=== PATIENT | male | born 1955 | race Asian ===

== ENCOUNTER 2024-02-07 07:08 | Day surgery (SDC) | payer OTHER ==
[2024-02-07] VITALS (11 sets, daily range): BP systolic 104–134; BP diastolic 64–79
[~2024-02-07] VITALS: Ht 175.3 cm; Wt 83.3 kg
[~2024-02-07 07:08] MED LIST: AMOCLA875 PO; ATEN25 PO; ATOR40TA PO; CETI5 PO; FINA5 PO; FISH OIL 1,0001 EA10 PO; FLUTICASONE-SA1 EAC9 IH; MAGCIT300; TAMS.4ER PO
[2024-02-07] MEDS ORDERED: Lactated Ringer's 1,000 ML IV SCH (08:05)
[2024-02-07] MEDS ORDERED: CeFAZolin Sodium 2,000 MG in NS 100 ML IV SCH (08:05)
[2024-02-07] MEDS ORDERED: CeFAZolin Sodium 2,000 MG VIAL ONE (08:27)
[2024-02-07] MEDS ORDERED: Bupivacaine 0.5% HCl 5 MG/ML 30MLVIAL ONE (08:52)
[2024-02-07] MEDS ORDERED: propofoL 20 ML IV ONE (09:01)
[2024-02-07] MEDS ORDERED: FentaNYL Citrate 50 MCG/ML 2 ML Injection ONE (09:01)
[2024-02-07] MEDS ORDERED: SuccINYLCHOLINE Chloride 100 MG/5 ML 5MLSYR ONE (09:03)
[2024-02-07] MEDS ORDERED: Rocuronium Bromide 10 MG/ML 5ML Injection IV ONE ×2 (09:03→09:16)
[2024-02-07] MEDS ORDERED: Dexamethasone Sod Phos 10 MG/ML 1ML VIAL ONE (09:16)
[2024-02-07] MEDS ORDERED: ePHEDrine Sulfate 50 MG/ML 1ML Injection ONE (09:16)
[2024-02-07] MEDS ORDERED: Ondansetron HCl 2 MG / ML 2ML Vial ONE (09:16)
[2024-02-07] MEDS ORDERED: Sugammadex Sodium 200 MG/2ML SDV (100 MG/ML) ONE (10:07)
[2024-02-07] MEDS ORDERED: Ketorolac Tromethamine 30mg Vial ONE (10:08)
[2024-02-07] MEDS ORDERED: HYDROcodone 5-APAP 325 TAB PO PRN (10:30)
--- NOTE | 2024-02-07 12:01 | NUR ---
DISCHARGE NOTE PT A&OX4, BREATHING RA, NO COMPLAINTS, TOLERATING PO FLUIDS. PT REFUSES SNACK AND PO PAIN PILL. PT DRESSED INDEPENDENTLY. Patient up to Ambulate independently. Gait steady. Discharge instructions reviewed with patient. Patient verbalizes understanding. Copy given to patient to take home. Dressing to procedure site clean, dry, intact with no visible drainage, swelling, erythema or bruising noted. Discharged via wheelchair to private car for ride home.
== END 2024-02-07 12:00 | disposition home or self-care (01) ==
LOC: ORSCMMR 07:08 → ORD 08:30 → ORSCMMR 12:00
DX: K80.10 Calculus of gallbladder with chronic cholecystitis without obstruction (principal); I48.0 Paroxysmal atrial fibrillation; I10 Essential (primary) hypertension; E78.5 Hyperlipidemia, unspecified; N40.1 Benign prostatic hyperplasia with lower urinary tract symptoms; K76.0 Fatty (change of) liver, not elsewhere classified; Z79.899 Other long term (current) drug therapy; Z79.82 Long term (current) use of aspirin
CPT/HCPCS: 74300; 88304; 93005; 93010; C1894; J0330; J0690; J1100; J1885; J2405; J2704; J3010; J7120